=== PATIENT | male | born 1950 | race Caucasian/White ===

== ENCOUNTER 2017-06-11 10:46 | Inpatient (IN) | payer MEDICAID, OTHER ==
[~2017-06-11] VITALS: Ht 180.3 cm; Wt 81.6 kg
[~2017-06-11 10:46] MED LIST: ASPI-621 PO; ATOR20TA9 PO; ATOR40TA PO; ATOR40TA78 PO; CARV3.122 PO; CLOP75TA PO; CLOP75TA52 PO; FLUC200T PO; FURO-92 PO; FURO40TA6 PO; HYDR-3237 PO; LEVO500T47 PO; LISI-170 PO; LISI5TAB7 PO; METF500T27 PO; METF500T4 PO; METO25TA35 PO; METO25TA35 PO/NG; MULT-750 PO; OXYC5TAB3 PO; PARO10TA56 PO; PARO20TA4 PO; POTA10TA5 PO; POTA20TA89 PO; SENN1TAB7 PO; SPIR25TA PO; SPIR25TA3 PO; TAMS-11 PO
[2017-06-11 11:30] LABS: BASOPHILS # (AUTO) 0.02 x10^3/uL (0-0.1); BASOPHILS % (AUTO) 0 % (0-1); EOSINOPHILS # (AUTO) 0.05 x10^3/uL (0-0.4); EOSINOPHILS % (AUTO) 1 % (1-7); LYMPHOCYTES # (AUTO) 1.15 x10^3/uL (1-3.4); LYMPHOCYTES % (AUTO) 18 % (22-44); MD NO; MEAN CORPUSCULAR HEMOGLOBIN 31.3 pg (27.5-34.5); MEAN CORPUSCULAR HGB CONC 34.2 g/dL (33.2-36.2); MEAN CORPUSCULAR VOLUME 91.5 fL (81-97); MONOCYTES # (AUTO) 0.33 x10^3/uL (0.2-0.8); MONOCYTES % (AUTO) 5 % (2-9); NEUTROPHILS # (AUTO) 4.71 x10^3/uL (1.8-6.8); NEUTROPHILS % (AUTO) 75 % (42-75); PLATELET COUNT 162 x10^3/uL (130-400); RED BLOOD COUNT 4.49 x10^6/uL (4.38-5.82); RED CELL DISTRIBUTION WIDTH 12.9 % (9.4-14.8)
[2017-06-11] MEDS ORDERED: SODIUM CHLORIDE 0.9% 1,000ML IVBOLUS ONE (11:30)
[2017-06-11] MEDS ORDERED: SODIUM CHLORIDE FLUSH 10ML SYR IVF ONE (11:30)
[2017-06-11 11:43] LABS: ANION GAP 10 mmol/L (5-15); CALCIUM 8.5 mg/dL (8.5-10.1); CHLORIDE 106 mmol/L (98-107)
[2017-06-11 11:50] LABS: CREATININE 1.08 mg/dL (0.7-1.3)
[2017-06-11 11:54] LABS: TROPONIN I 0.151 ng/mL (0.000-0.045)
[2017-06-11] MEDS ORDERED: ASPIRIN 81 MG TABLET CHEW PO ONE (12:30)
[2017-06-11] MEDS ORDERED: ASPIRIN 81 MG TABLET CHEW ONE (12:43)
[2017-06-11] MEDS ORDERED: GLUCAGON 1 MG IM PRN (14:00)
[2017-06-11] MEDS ORDERED: DOCUSATE 100 MG CAPSULE PO PRN (14:00)
[2017-06-11] MEDS ORDERED: SODIUM CHLORIDE 0.9% 1,000 ML IV SCH ×2 (14:00→14:40)
[2017-06-11] MEDS ORDERED: morphine SULFATE 10 MG/ML, 1ML IVPush PRN (14:00)
[2017-06-11] MEDS ORDERED: LABETALOL 5MG/ML, 20ML IVPush PRN (14:00)
[2017-06-11] MEDS ORDERED: POLYETHYLENE GLYCOL 17 GM PACKET PO PRN (14:00)
[2017-06-11] MEDS ORDERED: ENALAPRILAT 1.25 MG/ML, 2ML IVPush PRN (14:00)
[2017-06-11] MEDS ORDERED: DEXTROSE 50%, 50ML SYRINGE IVPush PRN (14:00)
[2017-06-11] MEDS ORDERED: BISACODYL 10 MG SUPP PR PRN (14:00)
[2017-06-11] MEDS ORDERED: DEXTROSE 4 GM TAB.CHEW PO PRN (14:00)
[2017-06-11] MEDS ORDERED: HYDROcodone/APAP 5/325 TABLET PO PRN (14:00)
[2017-06-11 14:54] LABS: HEMOGLOBIN A1C 12.5 % (4.2-6.3)
[2017-06-11] MEDS: HEPARIN 5,000 UNITS/ML, 1ML SQ SCH ×2 (15:02→22:51)
[2017-06-11] MEDS ORDERED: GADOBUTROL 7.5 MMOL/7.5 ML PFS ONE (16:48)
[2017-06-11 17:26] VITALS: BP 165/84
[2017-06-11 17:27] VITALS: BP 166/82
[2017-06-11 17:28] VITALS: BP 172/95
[2017-06-11] MEDS: CARVEDILOL 3.125 MG TABLET PO SCH (17:36)
[2017-06-11] MEDS: INSULIN LISPRO 100 UNITS/ML, PEN SQ-INSULIN SCH ×2 (17:38→21:52)
[2017-06-11 18:53] VITALS: BP 133/80
[2017-06-11] MEDS: LISINOPRIL 20 MG TABLET PO SCH (21:46)
[2017-06-11] MEDS: ATORVASTATIN 20 MG TABLET PO SCH (21:46)
[2017-06-11] MEDS: SODIUM CHLORIDE FLUSH 10ML SYR IVF SCH (21:47)
[2017-06-11] MEDS: ONDANSETRON 2MG/ML, 2ML IVPush PRN (22:51)
[2017-06-11 23:59] LABS: TROPONIN I 0.166 ng/mL (0.000-0.045)
[2017-06-12 04:26] LABS: BASOPHILS # (AUTO) 0.02 x10^3/uL (0-0.1); BASOPHILS % (AUTO) 0 % (0-1); EOSINOPHILS # (AUTO) 0.13 x10^3/uL (0-0.4); EOSINOPHILS % (AUTO) 2 % (1-7); LYMPHOCYTES # (AUTO) 1.28 x10^3/uL (1-3.4); LYMPHOCYTES % (AUTO) 20 % (22-44); MD NO; MEAN CORPUSCULAR HEMOGLOBIN 31.5 pg (27.5-34.5); MEAN CORPUSCULAR HGB CONC 34.4 g/dL (33.2-36.2); MEAN CORPUSCULAR VOLUME 91.4 fL (81-97); MEAN PLATELET VOLUME 10.2 fL (7.4-10.4); MONOCYTES % (AUTO) 5 % (2-9); NEUTROPHILS # (AUTO) 4.63 x10^3/uL (1.8-6.8); NEUTROPHILS % (AUTO) 73 % (42-75); PLATELET COUNT 163 x10^3/uL (130-400); RED BLOOD COUNT 4.44 x10^6/uL (4.38-5.82); RED CELL DISTRIBUTION WIDTH 12.9 % (9.4-14.8)
[2017-06-12 04:35] VITALS: BP 157/79
[2017-06-12 04:42] LABS: CHLORIDE 109 mmol/L (98-107)
[2017-06-12 04:50] LABS: ALANINE AMINOTRANSFERASE 13 U/L (12-78); ALBUMIN 2.7 g/dL (3.4-5.0); ALKALINE PHOSPHATASE 74 U/L (45-117); ANION GAP 7 mmol/L (5-15); CALCIUM 8.3 mg/dL (8.5-10.1); CREATININE 0.88 mg/dL (0.7-1.3); TOTAL PROTEIN 5.9 g/dL (6.4-8.2)
[2017-06-12] MEDS: HEPARIN 5,000 UNITS/ML, 1ML SQ SCH ×3 (06:29→21:19)
[2017-06-12] MEDS: CARVEDILOL 3.125 MG TABLET PO SCH ×2 (06:29→17:42)
[2017-06-12] MEDS: ONDANSETRON 2MG/ML, 2ML IVPush PRN ×3 (06:29→21:19)
[2017-06-12] MEDS: INSULIN LISPRO 100 UNITS/ML, PEN SQ-INSULIN SCH ×4 (07:00→21:15)
[2017-06-12 07:03] VITALS: BP 165/87
[2017-06-12] MEDS: MULTIVITAMIN 1 TABLET PO SCH (08:53)
[2017-06-12] MEDS: LISINOPRIL 20 MG TABLET PO SCH ×2 (08:53→21:14)
[2017-06-12] MEDS: SODIUM CHLORIDE FLUSH 10ML SYR IVF SCH ×2 (08:53→21:14)
[2017-06-12] MEDS: TAMSULOSIN 0.4 MG CAP.ER.24H PO SCH (08:53)
[2017-06-12] MEDS: PAROXETINE 20 MG TABLET PO SCH (08:53)
[2017-06-12] MEDS: ASPIRIN 81 MG TABLET EC PO SCH (08:53)
[2017-06-12] MEDS: CLOPIDOGREL 75 MG TABLET PO SCH (08:53)
[2017-06-12] MEDS ORDERED: REGADENOSON 0.4 MG/5 ML SYRINGE ONE (09:03)
[2017-06-12 11:01] VITALS: BP_SYST 162; BP_SYST 169; BP_SYST 170; BP_DIAS 85; BP_DIAS 88; BP_DIAS 94
[2017-06-12] MEDS: ACETAMINOPHEN 325 MG TABLET PO PRN (11:31)
[2017-06-12 13:16] VITALS: BP 150/74
[2017-06-12] MEDS ORDERED: LORazepam 2 MG/ML, 1ML IVPush PRN (14:30)
[2017-06-12 20:26] VITALS: BP 147/56
[2017-06-12] MEDS: ATORVASTATIN 20 MG TABLET PO SCH (21:14)
[2017-06-13] VITALS (9 sets, daily range): BP systolic 142–180; BP diastolic 48–98
[2017-06-13] MEDS: ACETAMINOPHEN 325 MG TABLET PO PRN ×2 (06:08→11:45)
[2017-06-13] MEDS: CARVEDILOL 3.125 MG TABLET PO SCH ×2 (06:09→17:14)
[2017-06-13] MEDS: HEPARIN 5,000 UNITS/ML, 1ML SQ SCH ×3 (06:09→22:18)
[2017-06-13 06:15] LABS: BASOPHILS # (AUTO) 0.02 x10^3/uL (0-0.1); BASOPHILS % (AUTO) 0 % (0-1); CHLORIDE 109 mmol/L (98-107); EOSINOPHILS # (AUTO) 0.05 x10^3/uL (0-0.4); EOSINOPHILS % (AUTO) 1 % (1-7); LYMPHOCYTES # (AUTO) 2.06 x10^3/uL (1-3.4); LYMPHOCYTES % (AUTO) 23 % (22-44); MD NO; MEAN CORPUSCULAR HEMOGLOBIN 31.5 pg (27.5-34.5); MEAN CORPUSCULAR HGB CONC 34.5 g/dL (33.2-36.2); MEAN CORPUSCULAR VOLUME 91.3 fL (81-97); MEAN PLATELET VOLUME 10.2 fL (7.4-10.4); MONOCYTES # (AUTO) 0.54 x10^3/uL (0.2-0.8); MONOCYTES % (AUTO) 6 % (2-9); NEUTROPHILS # (AUTO) 6.21 x10^3/uL (1.8-6.8); NEUTROPHILS % (AUTO) 70 % (42-75); PLATELET COUNT 197 x10^3/uL (130-400); RED BLOOD COUNT 4.87 x10^6/uL (4.38-5.82); RED CELL DISTRIBUTION WIDTH 12.7 % (9.4-14.8)
[2017-06-13 06:25] LABS: ALANINE AMINOTRANSFERASE 13 U/L (12-78); ALKALINE PHOSPHATASE 79 U/L (45-117); ANION GAP 11 mmol/L (5-15); BILIRUBIN,TOTAL 0.9 mg/dL (0.2-1.0); CALCIUM 8.8 mg/dL (8.5-10.1); CREATININE 0.98 mg/dL (0.7-1.3); TOTAL PROTEIN 6.4 g/dL (6.4-8.2)
[2017-06-13] MEDS: ONDANSETRON 2MG/ML, 2ML IVPush PRN ×2 (06:45→11:45)
[2017-06-13] MEDS ORDERED: POTASSIUM CHLORIDE 20 MEQ TAB.ER.PRT PO ONE (08:00)
[2017-06-13] MEDS: MULTIVITAMIN 1 TABLET PO SCH (09:31)
[2017-06-13] MEDS: LISINOPRIL 20 MG TABLET PO SCH ×2 (09:31→20:21)
[2017-06-13] MEDS: INSULIN LISPRO 100 UNITS/ML, PEN SQ-INSULIN SCH ×4 (09:31→20:27)
[2017-06-13] MEDS: PAROXETINE 20 MG TABLET PO SCH (09:31)
[2017-06-13] MEDS: TAMSULOSIN 0.4 MG CAP.ER.24H PO SCH (09:31)
[2017-06-13] MEDS: CLOPIDOGREL 75 MG TABLET PO SCH (09:32)
[2017-06-13] MEDS: SODIUM CHLORIDE FLUSH 10ML SYR IVF SCH ×2 (09:32→20:22)
[2017-06-13] MEDS: ASPIRIN 81 MG TABLET EC PO SCH (09:32)
[2017-06-13] MEDS ORDERED: SUMATRIPTAN 6MG/0.5ML SQ PRN (12:00)
[2017-06-13] MEDS: DOCUSATE 100 MG CAPSULE PO SCH ×2 (13:02→20:21)
[2017-06-13] MEDS: AMLODIPINE 5 MG TABLET PO SCH (13:03)
[2017-06-13 13:28] LABS: MICROSCOPIC INDICATED
[2017-06-13 13:36] LABS: CULTURE INDICATED? NO
[2017-06-13] MEDS: ATORVASTATIN 20 MG TABLET PO SCH (20:21)
[2017-06-14 00:44] VITALS: BP 136/73
[2017-06-14] MEDS: ACETAMINOPHEN 325 MG TABLET PO PRN ×3 (06:20→20:20)
[2017-06-14] MEDS: CARVEDILOL 3.125 MG TABLET PO SCH ×2 (06:21→18:03)
[2017-06-14] MEDS: HEPARIN 5,000 UNITS/ML, 1ML SQ SCH ×3 (06:21→20:33)
[2017-06-14] MEDS: INSULIN LISPRO 100 UNITS/ML, PEN SQ-INSULIN SCH ×4 (07:55→20:26)
[2017-06-14 08:05] VITALS: BP 144/77
[2017-06-14 08:06] VITALS: BP_SYST 159; BP_SYST 167; BP_DIAS 102; BP_DIAS 89
[2017-06-14] MEDS: SODIUM CHLORIDE FLUSH 10ML SYR IVF SCH ×2 (09:00→20:17)
[2017-06-14] MEDS ORDERED: INSULIN GLARGINE 100 UNITS/ML, PEN SQ-INSULIN SCH (09:00)
[2017-06-14] MEDS: PAROXETINE 20 MG TABLET PO SCH (09:00)
[2017-06-14] MEDS: INSULIN DETEMIR 100 UNITS/ML, PEN SQ-INSULIN SCH ×2 (09:00→20:26)
[2017-06-14] MEDS ORDERED: PAROXETINE 10 MG TABLET ONE (09:39)
[2017-06-14] MEDS: CLOPIDOGREL 75 MG TABLET PO SCH (09:41)
[2017-06-14] MEDS: LISINOPRIL 20 MG TABLET PO SCH ×2 (09:42→20:18)
[2017-06-14] MEDS: AMLODIPINE 5 MG TABLET PO SCH (09:42)
[2017-06-14] MEDS: ASPIRIN 81 MG TABLET EC PO SCH (09:42)
[2017-06-14] MEDS: MULTIVITAMIN 1 TABLET PO SCH (09:42)
[2017-06-14] MEDS: DOCUSATE 100 MG CAPSULE PO SCH ×2 (09:42→20:17)
[2017-06-14] MEDS: MECLIZINE 12.5 MG TABLET PO SCH ×3 (09:43→20:17)
[2017-06-14] MEDS: TAMSULOSIN 0.4 MG CAP.ER.24H PO SCH (09:43)
[2017-06-14 12:54] VITALS: BP 105/61
[2017-06-14] MEDS ORDERED: AMLO5TAB2 PO (12:58)
[2017-06-14] MEDS ORDERED: MULT1TAB60 PO (12:58)
[2017-06-14] MEDS ORDERED: INSU100I11 SQ-INSULIN (12:58)
[2017-06-14] MEDS ORDERED: TAMS-11 PO (12:58)
[2017-06-14] MEDS ORDERED: INSU100I28 SQ-INSULIN (12:58)
[2017-06-14] MEDS ORDERED: DOCU-131 PO (12:58)
[2017-06-14] MEDS ORDERED: LISI-170 PO (12:58)
[2017-06-14] MEDS ORDERED: CLOP75TA PO (12:58)
[2017-06-14] MEDS ORDERED: PARO20TA4 PO (12:58)
[2017-06-14] MEDS ORDERED: ASPI-621 PO (12:58)
[2017-06-14] MEDS ORDERED: ONDA4TAB10 PO (12:58)
[2017-06-14] MEDS ORDERED: ATOR20TA9 PO (12:58)
[2017-06-14] MEDS ORDERED: MECL12.52 PO (12:58)
[2017-06-14] MEDS ORDERED: CARV3.1212 PO (12:58)
[2017-06-14 19:55] VITALS: BP 150/78
[2017-06-14 19:56] VITALS: BP_SYST 133; BP_SYST 144; BP_DIAS 77; BP_DIAS 86
[2017-06-14] MEDS: ATORVASTATIN 20 MG TABLET PO SCH (20:17)
[2017-06-15 02:10] VITALS: BP 151/72
[2017-06-15] MEDS: ONDANSETRON 2MG/ML, 2ML IVPush PRN (04:48)
[2017-06-15] MEDS: CARVEDILOL 3.125 MG TABLET PO SCH ×2 (05:46→18:34)
[2017-06-15] MEDS: HEPARIN 5,000 UNITS/ML, 1ML SQ SCH ×3 (05:46→23:05)
[2017-06-15 07:46] VITALS: BP 154/86
[2017-06-15 07:47] VITALS: BP 139/82
[2017-06-15 07:49] VITALS: BP 149/81
[2017-06-15] MEDS: INSULIN LISPRO 100 UNITS/ML, PEN SQ-INSULIN SCH ×4 (08:01→20:52)
[2017-06-15] MEDS: PAROXETINE 20 MG TABLET PO SCH (09:00)
[2017-06-15] MEDS: SODIUM CHLORIDE FLUSH 10ML SYR IVF SCH ×2 (09:00→20:51)
[2017-06-15] MEDS ORDERED: PAROXETINE 10 MG TABLET ONE (09:53)
[2017-06-15] MEDS: MECLIZINE 12.5 MG TABLET PO SCH ×3 (09:57→20:52)
[2017-06-15] MEDS: CLOPIDOGREL 75 MG TABLET PO SCH (09:58)
[2017-06-15] MEDS: MULTIVITAMIN 1 TABLET PO SCH (09:58)
[2017-06-15] MEDS: TAMSULOSIN 0.4 MG CAP.ER.24H PO SCH (09:58)
[2017-06-15] MEDS: ASPIRIN 81 MG TABLET EC PO SCH (09:58)
[2017-06-15] MEDS: LISINOPRIL 20 MG TABLET PO SCH ×2 (09:58→20:52)
[2017-06-15] MEDS: AMLODIPINE 5 MG TABLET PO SCH (09:58)
[2017-06-15] MEDS: DOCUSATE 100 MG CAPSULE PO SCH ×2 (09:58→20:52)
[2017-06-15] MEDS: INSULIN DETEMIR 100 UNITS/ML, PEN SQ-INSULIN SCH ×2 (09:59→20:53)
[2017-06-15 13:09] VITALS: BP 138/80
[2017-06-15 18:51] VITALS: BP 116/65
[2017-06-15] MEDS: ATORVASTATIN 20 MG TABLET PO SCH (20:52)
[2017-06-16 02:29] VITALS: BP 132/64
[2017-06-16] MEDS: CARVEDILOL 3.125 MG TABLET PO SCH ×2 (05:07→17:46)
[2017-06-16 07:12] VITALS: BP 149/78
[2017-06-16] MEDS ORDERED: PAROXETINE 10 MG TABLET ONE (08:30)
[2017-06-16] MEDS: HEPARIN 5,000 UNITS/ML, 1ML SQ SCH ×3 (08:34→23:22)
[2017-06-16] MEDS: PAROXETINE 20 MG TABLET PO SCH (08:35)
[2017-06-16] MEDS: MECLIZINE 12.5 MG TABLET PO SCH ×3 (08:35→21:25)
[2017-06-16] MEDS: AMLODIPINE 5 MG TABLET PO SCH (08:36)
[2017-06-16] MEDS: TAMSULOSIN 0.4 MG CAP.ER.24H PO SCH (08:36)
[2017-06-16] MEDS: DOCUSATE 100 MG CAPSULE PO SCH ×2 (08:36→21:25)
[2017-06-16] MEDS: CLOPIDOGREL 75 MG TABLET PO SCH (08:36)
[2017-06-16] MEDS: MULTIVITAMIN 1 TABLET PO SCH (08:36)
[2017-06-16] MEDS: LISINOPRIL 20 MG TABLET PO SCH ×2 (08:36→21:25)
[2017-06-16] MEDS: ASPIRIN 81 MG TABLET EC PO SCH (08:36)
[2017-06-16] MEDS: INSULIN LISPRO 100 UNITS/ML, PEN SQ-INSULIN SCH ×4 (08:37→21:37)
[2017-06-16] MEDS: INSULIN DETEMIR 100 UNITS/ML, PEN SQ-INSULIN SCH ×2 (08:37→21:38)
[2017-06-16] MEDS: SODIUM CHLORIDE FLUSH 10ML SYR IVF SCH ×2 (08:38→21:26)
[2017-06-16 12:35] VITALS: BP 158/88
[2017-06-16 15:01] VITALS: BP 138/80
[2017-06-16 16:28] VITALS: BP 157/83
[2017-06-16 20:29] VITALS: BP 164/77
[2017-06-16] MEDS: ATORVASTATIN 20 MG TABLET PO SCH (21:25)
[2017-06-17] VITALS (8 sets, daily range): BP systolic 108–155; BP diastolic 52–88
[2017-06-17] MEDS: INSULIN LISPRO 100 UNITS/ML, PEN SQ-INSULIN SCH ×4 (06:09→21:15)
[2017-06-17] MEDS: CARVEDILOL 3.125 MG TABLET PO SCH ×2 (06:12→17:20)
[2017-06-17 08:16] LABS: BASOPHILS # (AUTO) 0.02 x10^3/uL (0-0.1); BASOPHILS % (AUTO) 0 % (0-1); EOSINOPHILS # (AUTO) 0.07 x10^3/uL (0-0.4); EOSINOPHILS % (AUTO) 1 % (1-7); LYMPHOCYTES # (AUTO) 1.44 x10^3/uL (1-3.4); LYMPHOCYTES % (AUTO) 27 % (22-44); MD NO; MEAN CORPUSCULAR HEMOGLOBIN 31.3 pg (27.5-34.5); MEAN CORPUSCULAR HGB CONC 34.3 g/dL (33.2-36.2); MEAN CORPUSCULAR VOLUME 91.3 fL (81-97); MEAN PLATELET VOLUME 9.9 fL (7.4-10.4); MONOCYTES # (AUTO) 0.71 x10^3/uL (0.2-0.8); MONOCYTES % (AUTO) 13 % (2-9); NEUTROPHILS # (AUTO) 3.04 x10^3/uL (1.8-6.8); NEUTROPHILS % (AUTO) 58 % (42-75); PLATELET COUNT 141 x10^3/uL (130-400); RED BLOOD COUNT 4.99 x10^6/uL (4.38-5.82); RED CELL DISTRIBUTION WIDTH 12.7 % (9.4-14.8)
[2017-06-17 08:20] LABS: ANION GAP 8 mmol/L (5-15); CALCIUM 8.4 mg/dL (8.5-10.1); CHLORIDE 103 mmol/L (98-107); CREATININE 0.77 mg/dL (0.7-1.3)
[2017-06-17] MEDS: MECLIZINE 12.5 MG TABLET PO SCH (09:34)
[2017-06-17] MEDS: PAROXETINE 20 MG TABLET PO SCH (09:34)
[2017-06-17] MEDS: CLOPIDOGREL 75 MG TABLET PO SCH (09:35)
[2017-06-17] MEDS: LISINOPRIL 20 MG TABLET PO SCH (09:35)
[2017-06-17] MEDS: AMLODIPINE 5 MG TABLET PO SCH (09:35)
[2017-06-17] MEDS: INSULIN DETEMIR 100 UNITS/ML, PEN SQ-INSULIN SCH ×2 (09:35→21:15)
[2017-06-17] MEDS: TAMSULOSIN 0.4 MG CAP.ER.24H PO SCH (09:35)
[2017-06-17] MEDS: ASPIRIN 81 MG TABLET EC PO SCH (09:35)
[2017-06-17] MEDS: MULTIVITAMIN 1 TABLET PO SCH (09:35)
[2017-06-17] MEDS: DOCUSATE 100 MG CAPSULE PO SCH ×2 (09:35→20:23)
[2017-06-17] MEDS: SODIUM CHLORIDE FLUSH 10ML SYR IVF SCH ×2 (09:36→21:00)
[2017-06-17] MEDS: HEPARIN 5,000 UNITS/ML, 1ML SQ SCH ×2 (09:36→17:20)
[2017-06-17] MEDS: SODIUM CHLORIDE 0.9% 1,000 ML IV SCH ×2 (10:51→20:00)
[2017-06-17] MEDS: ATORVASTATIN 20 MG TABLET PO SCH (20:23)
[2017-06-18] MEDS: HEPARIN 5,000 UNITS/ML, 1ML SQ SCH ×3 (01:27→17:00)
[2017-06-18 01:38] VITALS: BP 166/84
[2017-06-18] MEDS: HYDROcodone/APAP 5/325 TABLET PO PRN ×2 (01:42→21:17)
[2017-06-18] MEDS: SODIUM CHLORIDE 0.9% 1,000 ML IV SCH ×3 (04:00→20:00)
[2017-06-18 05:05] LABS: ALBUMIN 2.4 g/dL (3.4-5.0); ANION GAP 8 mmol/L (5-15); CALCIUM 7.8 mg/dL (8.5-10.1); CHLORIDE 106 mmol/L (98-107)
[2017-06-18 05:07] LABS: CREATININE 0.72 mg/dL (0.7-1.3)
[2017-06-18] MEDS: CARVEDILOL 3.125 MG TABLET PO SCH ×2 (06:20→18:36)
[2017-06-18] MEDS: INSULIN LISPRO 100 UNITS/ML, PEN SQ-INSULIN SCH ×4 (07:00→21:24)
[2017-06-18 07:49] VITALS: BP 156/78
[2017-06-18] MEDS ORDERED: LISINOPRIL 5 MG TABLET PO SCH (09:00)
[2017-06-18] MEDS: SODIUM CHLORIDE FLUSH 10ML SYR IVF SCH ×2 (09:00→21:00)
[2017-06-18] MEDS: TAMSULOSIN 0.4 MG CAP.ER.24H PO SCH (09:44)
[2017-06-18] MEDS: ASPIRIN 81 MG TABLET EC PO SCH (09:44)
[2017-06-18] MEDS: MULTIVITAMIN 1 TABLET PO SCH (09:44)
[2017-06-18] MEDS: CLOPIDOGREL 75 MG TABLET PO SCH (09:44)
[2017-06-18] MEDS: DOCUSATE 100 MG CAPSULE PO SCH ×2 (09:45→21:16)
[2017-06-18] MEDS: PAROXETINE 20 MG TABLET PO SCH (09:45)
[2017-06-18] MEDS: INSULIN DETEMIR 100 UNITS/ML, PEN SQ-INSULIN SCH ×2 (09:45→21:26)
[2017-06-18 13:11] VITALS: BP 145/73
[2017-06-18 14:42] VITALS: BP_SYST 145; BP_SYST 151; BP_DIAS 73; BP_DIAS 82; BP_DIAS 84
[2017-06-18 15:15] VITALS: BP_SYST 157; BP_SYST 169; BP_DIAS 81; BP_DIAS 82
[2017-06-18 19:45] VITALS: BP 153/82
[2017-06-18] MEDS: ATORVASTATIN 20 MG TABLET PO SCH (21:16)
[2017-06-19] MEDS: HEPARIN 5,000 UNITS/ML, 1ML SQ SCH ×2 (01:20→10:15)
[2017-06-19 02:23] VITALS: BP 149/79
[2017-06-19] MEDS: SODIUM CHLORIDE 0.9% 1,000 ML IV SCH (04:00)
[2017-06-19] MEDS: CARVEDILOL 3.125 MG TABLET PO SCH (06:07)
[2017-06-19 06:14] VITALS: BP_SYST 161; BP_SYST 166; BP_DIAS 81; BP_DIAS 87
[2017-06-19 06:15] VITALS: BP 162/93
[2017-06-19] MEDS: HYDROcodone/APAP 5/325 TABLET PO PRN (06:36)
[2017-06-19] MEDS: INSULIN LISPRO 100 UNITS/ML, PEN SQ-INSULIN SCH ×2 (07:00→11:00)
[2017-06-19 07:09] VITALS: BP 153/85
[2017-06-19] MEDS: SODIUM CHLORIDE FLUSH 10ML SYR IVF SCH (09:00)
[2017-06-19] MEDS: CLOPIDOGREL 75 MG TABLET PO SCH (10:15)
[2017-06-19] MEDS: INSULIN DETEMIR 100 UNITS/ML, PEN SQ-INSULIN SCH (10:15)
[2017-06-19] MEDS: MULTIVITAMIN 1 TABLET PO SCH (10:15)
[2017-06-19] MEDS: DOCUSATE 100 MG CAPSULE PO SCH (10:15)
[2017-06-19] MEDS: TAMSULOSIN 0.4 MG CAP.ER.24H PO SCH (10:15)
[2017-06-19] MEDS: PAROXETINE 20 MG TABLET PO SCH (10:15)
[2017-06-19] MEDS: ASPIRIN 81 MG TABLET EC PO SCH (10:15)
== END 2017-06-19 11:46 | disposition left against medical advice (07) | DRG 149 ==
LOC: ED 11:35 → EDIP 12:59 → 5SO 14:29 → 4NOR 06-16 16:26
PROVIDERS: ADMIT Hospitalist; ATTEND Hospitalist
DX: R42 Dizziness and giddiness (principal); I21.9 Acute myocardial infarction, unspecified; E44.0 Moderate protein-calorie malnutrition; I13.0 Hypertensive heart and chronic kidney disease with heart failure and stage 1 through stage 4 chronic kidney disease, or unspecified chronic kidney disease; I50.22 Chronic systolic (congestive) heart failure; D63.8 Anemia in other chronic diseases classified elsewhere; N32.0 Bladder-neck obstruction; E11.22 Type 2 diabetes mellitus with diabetic chronic kidney disease; E11.65 Type 2 diabetes mellitus with hyperglycemia; Z68.25 Body mass index [BMI] 25.0-25.9, adult; E78.00 Pure hypercholesterolemia, unspecified; E78.5 Hyperlipidemia, unspecified; F32.9 Major depressive disorder, single episode, unspecified; F41.9 Anxiety disorder, unspecified; G43.009 Migraine without aura, not intractable, without status migrainosus; H93.19 Tinnitus, unspecified ear; I25.10 Atherosclerotic heart disease of native coronary artery without angina pectoris; I25.5 Ischemic cardiomyopathy; I44.0 Atrioventricular block, first degree; I95.1 Orthostatic hypotension; J44.9 Chronic obstructive pulmonary disease, unspecified; N18.2 Chronic kidney disease, stage 2 (mild); Z53.21 Procedure and treatment not carried out due to patient leaving prior to being seen by health care provider; N40.0 Benign prostatic hyperplasia without lower urinary tract symptoms; Z95.1 Presence of aortocoronary bypass graft; Z59.0 Homelessness; Z66 Do not resuscitate; Z91.19 Patient's noncompliance with other medical treatment and regimen
CPT/HCPCS: 36415; 70548; 70553; 71045; 78452; 80048; 80053; 81001; 82040; 82962; 83036; 83735; 84100; 84443; 84484; 85025; 93005; 93017; 93306; 93880; 99285; A9585; J1644; J2405; J2785; A9502; C9898; J1815; J2060; J3030; J7030

== ENCOUNTER 2017-06-19 11:51 | Emergency (ER) | payer SELFPAY ==
[~2017-06-19] VITALS: Ht 180.3 cm; Wt 83.0 kg
[~2017-06-19 11:51] MED LIST changes: +AMLO5TAB2 PO; +CARV3.1212 PO; +DOCU-131 PO; +INSU100I11 SQ-INSULIN; +INSU100I28 SQ-INSULIN; +MECL12.52 PO; +MULT1TAB60 PO; +ONDA4TAB10 PO
[2017-06-19 16:33] VITALS: BP 154/95
== END 2017-06-19 16:49 | disposition home or self-care (01) ==
LOC: ED 13:20
DX: R42 Dizziness and giddiness (principal); E78.00 Pure hypercholesterolemia, unspecified; J44.9 Chronic obstructive pulmonary disease, unspecified; E11.9 Type 2 diabetes mellitus without complications; I50.9 Heart failure, unspecified; I25.2 Old myocardial infarction; I11.0 Hypertensive heart disease with heart failure; Z95.1 Presence of aortocoronary bypass graft
CPT/HCPCS: 82962; 93005; 99283

== ENCOUNTER 2017-09-18 09:16 | Emergency (ER) | payer MEDICAID, MEDICARE, OTHER ==
[~2017-09-18] VITALS: Ht 177.8 cm; Wt 82.0 kg
[2017-09-18 09:17] VITALS: BP 130/76
== END 2017-09-18 10:26 | disposition home or self-care (01) ==
LOC: ED 10:20
DX: B86 Scabies (principal); E11.9 Type 2 diabetes mellitus without complications; J44.9 Chronic obstructive pulmonary disease, unspecified; I50.9 Heart failure, unspecified; I11.0 Hypertensive heart disease with heart failure; Z87.891 Personal history of nicotine dependence
CPT/HCPCS: 99283

== ENCOUNTER 2018-04-25 08:20 | Inpatient (IN) | payer MEDICARE, MEDICAID ==
[~2018-04-25] VITALS: Ht 180.3 cm; Wt 85.0 kg
[~2018-04-25 08:20] MED LIST changes: +AMLO-150 PO; -AMLO5TAB2 PO; -ASPI-621 PO; +ASPI81TA45 PO; +ATOR20TA37 PO; -ATOR20TA9 PO; +METF500T17 PO; -METF500T4 PO; -SENN1TAB7 PO; +SENN1TAB8 PO; -SPIR25TA3 PO; +SPIR25TA5 PO
[2018-04-25 09:02] LABS: BASOPHILS # (AUTO) 0.02 x10^3/uL (0-0.1); BASOPHILS % (AUTO) 0 % (0-1); EOSINOPHILS # (AUTO) 0.08 x10^3/uL (0-0.4); EOSINOPHILS % (AUTO) 1 % (1-7); LYMPHOCYTES # (AUTO) 1.11 x10^3/uL (1-3.4); LYMPHOCYTES % (AUTO) 12 % (22-44); MD NO; MEAN CORPUSCULAR HEMOGLOBIN 31.7 pg (27.5-34.5); MEAN CORPUSCULAR HGB CONC 34.8 g/dL (33.2-36.2); MEAN CORPUSCULAR VOLUME 91.2 fL (81-97); MEAN PLATELET VOLUME 10.4 fL (7.4-10.4); MONOCYTES # (AUTO) 0.55 x10^3/uL (0.2-0.8); MONOCYTES % (AUTO) 6 % (2-9); NEUTROPHILS # (AUTO) 7.85 x10^3/uL (1.8-6.8); NEUTROPHILS % (AUTO) 82 % (42-75); PLATELET COUNT 160 x10^3/uL (130-400); RED BLOOD COUNT 4.51 x10^6/uL (4.38-5.82); RED CELL DISTRIBUTION WIDTH 12.8 % (9.4-14.8)
[2018-04-25 09:12] LABS: ALANINE AMINOTRANSFERASE 18 U/L (12-78); ALBUMIN 2.9 g/dL (3.4-5.0); ANION GAP 12 mmol/L (5-15); CALCIUM 8.6 mg/dL (8.5-10.1); CHLORIDE 107 mmol/L (98-107); CREATININE 1.33 mg/dL (0.7-1.3)
[2018-04-25 09:16] LABS: ALKALINE PHOSPHATASE 80 U/L (45-117); BILIRUBIN,TOTAL 0.9 mg/dL (0.2-1.0); TOTAL PROTEIN 6.3 g/dL (6.4-8.2)
[2018-04-25 09:18] LABS: RAPID INFLUENZA A Negative (Negative); RAPID INFLUENZA B Negative (Negative)
[2018-04-25] MEDS ORDERED: ASPIRIN 81 MG TABLET CHEW ONE (09:27)
[2018-04-25] MEDS ORDERED: ASPIRIN 81 MG TABLET CHEW PO ONE (10:00)
[2018-04-25] MEDS ORDERED: PERMETHRIN CRM 5%, 60GM ONE (10:47)
[2018-04-25] MEDS ORDERED: PIPERONYL BUTOXIDE/PYRETHRINS SHAMPOO TP SCH (11:00)
[2018-04-25] MEDS ORDERED: POTASSIUM CHLORIDE 20 MEQ TAB.ER.PRT PO SCH (11:30)
[2018-04-25] MEDS ORDERED: morphine SULFATE 10 MG/ML, 1ML IVPush PRN (12:00)
[2018-04-25] MEDS ORDERED: ACETAMINOPHEN 325 MG TABLET PO PRN (12:00)
[2018-04-25] MEDS ORDERED: ONDANSETRON 2MG/ML, 2ML IVPush PRN (12:00)
[2018-04-25] MEDS ORDERED: hydrALAzine 20 MG/ML, 1ML IVPush PRN (12:00)
[2018-04-25] MEDS ORDERED: TEMAZEPAM 15 MG CAPSULE PO PRN (12:00)
[2018-04-25 12:52] LABS: BASOPHILS # (AUTO) 0.02 x10^3/uL (0-0.1); BASOPHILS % (AUTO) 0 % (0-1); EOSINOPHILS # (AUTO) 0.12 x10^3/uL (0-0.4); EOSINOPHILS % (AUTO) 1 % (1-7); LYMPHOCYTES # (AUTO) 1.83 x10^3/uL (1-3.4); LYMPHOCYTES % (AUTO) 21 % (22-44); MD NO; MEAN CORPUSCULAR HEMOGLOBIN 31.7 pg (27.5-34.5); MEAN CORPUSCULAR HGB CONC 34.8 g/dL (33.2-36.2); MEAN PLATELET VOLUME 10.7 fL (7.4-10.4); MONOCYTES # (AUTO) 0.59 x10^3/uL (0.2-0.8); MONOCYTES % (AUTO) 7 % (2-9); NEUTROPHILS # (AUTO) 6.31 x10^3/uL (1.8-6.8); NEUTROPHILS % (AUTO) 71 % (42-75); PLATELET COUNT 157 x10^3/uL (130-400); RED BLOOD COUNT 4.33 x10^6/uL (4.38-5.82); RED CELL DISTRIBUTION WIDTH 13.2 % (9.4-14.8)
[2018-04-25 13:16] VITALS: BP 149/76
[2018-04-25 13:28] VITALS: BP 149/76
[2018-04-25] MEDS: ISOSORBIDE MONONITRATE ER 30 MG TABLET PO SCH (14:05)
[2018-04-25] MEDS: SPIRONOLACTONE 25 MG TABLET PO SCH (14:06)
[2018-04-25] MEDS: HEPARIN 5,000 UNITS/ML, 1ML SQ SCH ×2 (14:06→20:32)
[2018-04-25] MEDS ORDERED: CEFTRIAXONE PMX 1GM/50ML 50 ML IV SCH (14:30)
[2018-04-25] MEDS: INSULIN LISPRO 100 UNITS/ML, PEN SQ-INSULIN SCH ×2 (16:00→20:33)
[2018-04-25 16:27] LABS: TROPONIN I 0.261 ng/mL (0.000-0.045)
[2018-04-25] MEDS ORDERED: ALBUTEROL/IPRATROPIUM 2.5MG/0.5MG, 3 ML NPPB PRN (16:30)
[2018-04-25] MEDS: methylPREDNISolone SOD SUCC 125 MG/2 ML IVPush SCH ×2 (16:48→20:32)
[2018-04-25] MEDS ORDERED: FUROSEMIDE 20 MG/2 ML IV SCH (17:00)
[2018-04-25] MEDS: METOPROLOL TARTRATE 50 MG TABLET PO SCH (17:14)
[2018-04-25 20:07] VITALS: BP 128/63
[2018-04-25] MEDS: ATORVASTATIN 40 MG TABLET PO SCH (20:34)
[2018-04-25] MEDS: DOXYCYCLINE 100MG TABLET PO SCH (20:34)
[2018-04-25] MEDS ORDERED: INSULIN GLARGINE 100 UNITS/ML, PEN SQ-INSULIN SCH (21:00)
[2018-04-25 21:16] LABS: TROPONIN I 0.267 ng/mL (0.000-0.045)
[2018-04-26 00:06] VITALS: BP 124/65
[2018-04-26] MEDS: methylPREDNISolone SOD SUCC 125 MG/2 ML IVPush SCH (02:34)
[2018-04-26] MEDS: HEPARIN 5,000 UNITS/ML, 1ML SQ SCH ×3 (04:03→20:55)
[2018-04-26 05:13] LABS: ALBUMIN 2.5 g/dL (3.4-5.0); ANION GAP 10 mmol/L (5-15); CALCIUM 8.3 mg/dL (8.5-10.1); CHLORIDE 107 mmol/L (98-107)
[2018-04-26 05:18] LABS: ALANINE AMINOTRANSFERASE 16 U/L (12-78); ALKALINE PHOSPHATASE 74 U/L (45-117); BILIRUBIN,TOTAL 0.6 mg/dL (0.2-1.0); CREATININE 1.39 mg/dL (0.7-1.3); TOTAL PROTEIN 6.1 g/dL (6.4-8.2)
[2018-04-26 05:40] VITALS: BP 145/77
[2018-04-26] MEDS: METOPROLOL TARTRATE 50 MG TABLET PO SCH ×2 (05:41→17:21)
[2018-04-26] MEDS: ASPIRIN 81 MG TABLET EC PO SCH (05:41)
[2018-04-26] MEDS: INSULIN LISPRO 100 UNITS/ML, PEN SQ-INSULIN SCH ×6 (08:33→22:31)
[2018-04-26] MEDS: DOXYCYCLINE 100MG TABLET PO SCH ×2 (08:34→20:55)
[2018-04-26] MEDS: ISOSORBIDE MONONITRATE ER 30 MG TABLET PO SCH (08:34)
[2018-04-26] MEDS: FUROSEMIDE 20 MG TABLET PO SCH (08:34)
[2018-04-26] MEDS: SPIRONOLACTONE 25 MG TABLET PO SCH (08:34)
[2018-04-26 09:41] VITALS: BP 100/65
[2018-04-26 12:55] VITALS: BP 110/63
[2018-04-26 18:48] VITALS: BP 99/63
[2018-04-26] MEDS: ATORVASTATIN 40 MG TABLET PO SCH (20:55)
[2018-04-26 20:57] VITALS: BP 133/69
[2018-04-26] MEDS ORDERED: INSULIN GLARGINE 100 UNITS/ML, PEN SQ-INSULIN SCH (21:00)
[2018-04-27 01:53] VITALS: BP 150/85
[2018-04-27] MEDS: ASPIRIN 81 MG TABLET EC PO SCH (05:25)
[2018-04-27] MEDS: HEPARIN 5,000 UNITS/ML, 1ML SQ SCH (05:26)
[2018-04-27] MEDS: METOPROLOL TARTRATE 50 MG TABLET PO SCH (05:27)
[2018-04-27 06:45] VITALS: BP 148/80
[2018-04-27 08:09] LABS: ANION GAP 7 mmol/L (5-15); CALCIUM 8.7 mg/dL (8.5-10.1); CHLORIDE 106 mmol/L (98-107); CREATININE 1.35 mg/dL (0.7-1.3)
[2018-04-27] MEDS: FUROSEMIDE 20 MG TABLET PO SCH (08:43)
[2018-04-27] MEDS: DOXYCYCLINE 100MG TABLET PO SCH (08:44)
[2018-04-27] MEDS: ISOSORBIDE MONONITRATE ER 30 MG TABLET PO SCH (08:44)
[2018-04-27] MEDS: INSULIN LISPRO 100 UNITS/ML, PEN SQ-INSULIN SCH ×4 (08:45→08:48)
[2018-04-27] MEDS: SPIRONOLACTONE 25 MG TABLET PO SCH (08:46)
== END 2018-04-27 09:31 | disposition left against medical advice (07) | DRG 291 ==
LOC: ED 09:29 → EDIP 10:05 → 5SO 13:06
PROVIDERS: ADMIT Hospitalist; ATTEND Hospitalist
DX: I13.0 Hypertensive heart and chronic kidney disease with heart failure and stage 1 through stage 4 chronic kidney disease, or unspecified chronic kidney disease (principal); I50.23 Acute on chronic systolic (congestive) heart failure; J44.1 Chronic obstructive pulmonary disease with (acute) exacerbation; N17.9 Acute kidney failure, unspecified; E11.22 Type 2 diabetes mellitus with diabetic chronic kidney disease; I71.2 Thoracic aortic aneurysm, without rupture; B85.0 Pediculosis due to Pediculus humanus capitis; I25.10 Atherosclerotic heart disease of native coronary artery without angina pectoris; N18.9 Chronic kidney disease, unspecified; Z59.0 Homelessness; N40.0 Benign prostatic hyperplasia without lower urinary tract symptoms; I25.2 Old myocardial infarction; E78.00 Pure hypercholesterolemia, unspecified; E11.65 Type 2 diabetes mellitus with hyperglycemia; B86 Scabies; Z95.1 Presence of aortocoronary bypass graft; Z82.49 Family history of ischemic heart disease and other diseases of the circulatory system; Z91.14 Patient's other noncompliance with medication regimen; Z91.19 Patient's noncompliance with other medical treatment and regimen
CPT/HCPCS: 36415; 71045; 76770; 80048; 80053; 82570; 82962; 83036; 83735; 83880; 84100; 84145; 84156; 84443; 84484; 85025; 85379; 87400; 93005; 99285; G0378; J0696; J1644; J1815; J1940; J2930; J7512

== ENCOUNTER 2018-08-24 13:29 | Emergency (ER) | payer MEDICARE, MEDICAID ==
[~2018-08-24] VITALS: Ht 180.3 cm; Wt 82.0 kg
[~2018-08-24 13:29] MED LIST changes: +SENN-177 PO; -SENN1TAB8 PO
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
[2018-08-24] MEDS ORDERED: SODIUM CHLORIDE FLUSH 10ML SYR IVF ONE (14:00)
[2018-08-24 14:22] LABS: BASOPHILS % (AUTO) 0 % (0-1); EOSINOPHILS # (AUTO) 0.01 x10^3/uL (0-0.4); EOSINOPHILS % (AUTO) 0 % (1-7); LYMPHOCYTES # (AUTO) 0.35 x10^3/uL (1-3.4); LYMPHOCYTES % (AUTO) 4 % (22-44); MD NO; MEAN CORPUSCULAR HEMOGLOBIN 30.4 pg (27.5-34.5); MEAN CORPUSCULAR HGB CONC 33.9 g/dL (33.2-36.2); MEAN CORPUSCULAR VOLUME 89.6 fL (81-97); MEAN PLATELET VOLUME 9.9 fL (7.4-10.4); MONOCYTES # (AUTO) 0.16 x10^3/uL (0.2-0.8); MONOCYTES % (AUTO) 2 % (2-9); NEUTROPHILS # (AUTO) 7.44 x10^3/uL (1.8-6.8); NEUTROPHILS % (AUTO) 94 % (42-75); PLATELET COUNT 157 x10^3/uL (130-400); RED BLOOD COUNT 4.31 x10^6/uL (4.38-5.82); RED CELL DISTRIBUTION WIDTH 13.1 % (9.4-14.8)
[2018-08-24 14:34] LABS: ALANINE AMINOTRANSFERASE 16 U/L (12-78); ALBUMIN 2.7 g/dL (3.4-5.0); ANION GAP 6 mmol/L (5-15); CALCIUM 8.2 mg/dL (8.5-10.1); CHLORIDE 115 mmol/L (98-107)
[2018-08-24 14:37] LABS: ALKALINE PHOSPHATASE 83 U/L (45-117); CREATININE 1.06 mg/dL (0.7-1.3); TOTAL PROTEIN 5.8 g/dL (6.4-8.2)
--- NOTE | 2018-08-24 14:41 | NUR ---
CHART UP FOR MD RECHECK. PT AWARE.
[2018-08-24 15:19] VITALS: BP 146/69
== END 2018-08-24 15:22 | disposition home or self-care (01) ==
LOC: ED 14:10
DX: B34.9 Viral infection, unspecified (principal); I25.2 Old myocardial infarction; E78.00 Pure hypercholesterolemia, unspecified; J44.9 Chronic obstructive pulmonary disease, unspecified; I50.9 Heart failure, unspecified; E11.9 Type 2 diabetes mellitus without complications
CPT/HCPCS: 36415; 71046; 80053; 85025; 93005; 99284

== ENCOUNTER 2019-03-27 00:12 | Emergency (ER) | payer MEDICAID, MEDICARE ==
[~2019-03-27] VITALS: Ht 177.8 cm; Wt 80.0 kg
[2019-03-27 00:59] LABS: BASOPHILS # (AUTO) 0.02 x10^3/uL (0-0.1); BASOPHILS % (AUTO) 0 % (0-1); EOSINOPHILS # (AUTO) 0.23 x10^3/uL (0-0.4); EOSINOPHILS % (AUTO) 2 % (1-7); LYMPHOCYTES # (AUTO) 1.25 x10^3/uL (1-3.4); LYMPHOCYTES % (AUTO) 13 % (22-44); MD NO; MEAN CORPUSCULAR HEMOGLOBIN 31.3 pg (27.5-34.5); MEAN CORPUSCULAR HGB CONC 33.3 g/dL (33.2-36.2); MEAN CORPUSCULAR VOLUME 93.8 fL (81-97); MEAN PLATELET VOLUME 9.7 fL (7.4-10.4); MONOCYTES # (AUTO) 0.52 x10^3/uL (0.2-0.8); MONOCYTES % (AUTO) 5 % (2-9); NEUTROPHILS # (AUTO) 7.67 x10^3/uL (1.8-6.8); NEUTROPHILS % (AUTO) 79 % (42-75); PLATELET COUNT 179 x10^3/uL (130-400); RED BLOOD COUNT 4.17 x10^6/uL (4.38-5.82); RED CELL DISTRIBUTION WIDTH 13.9 % (9.4-14.8)
--- NOTE | 2019-03-27 01:04 | NUR ---
INST ON THE NEED FOR A UA.
[2019-03-27 01:08] LABS: ALANINE AMINOTRANSFERASE 15 U/L (12-78); ALBUMIN 2.7 g/dL (3.4-5.0); ANION GAP 3 mmol/L (5-15); CALCIUM 8.6 mg/dL (8.5-10.1); CHLORIDE 113 mmol/L (98-107); CREATININE 1.18 mg/dL (0.7-1.3)
[2019-03-27 01:13] LABS: ALKALINE PHOSPHATASE 84 U/L (45-117); BILIRUBIN,TOTAL 0.6 mg/dL (0.2-1.0); TOTAL PROTEIN 6.3 g/dL (6.4-8.2)
[2019-03-27 01:27] LABS: TROPONIN I 0.418 ng/mL (0.000-0.045)
[2019-03-27] MEDS ORDERED: MORPHINE SULFATE 4 MG/ML, 1ML IVPush PRN (01:30)
[2019-03-27] MEDS ORDERED: NITROGLYCERIN OINT 2%, 1GM TP ONE ×2 (01:30→01:32)
[2019-03-27] MEDS ORDERED: MORPHINE SULFATE 4 MG/ML, 1ML ONE (01:32)
[2019-03-27 01:36] VITALS: BP 138/72
--- NOTE | 2019-03-27 01:36 | NUR ---
PT INFORMED OF ELEVATED TROP AND EXPLAINED THE RISKS OF LEAVING. PA AWARE & PT EXPRESSED WANTS TO GO HOME. "I DONT CARE.. I WANT TO GO HOME & GET SOME REST". PT AWARE OF PLAN TO SIGN AMA.
--- NOTE | 2019-03-27 01:45 | NUR ---
PIV DC. BLEEDING CONTROLLED. SIGNED AMA PAPERWORK. AGAIN DISCUSSED RISKS OF LEAVING.. "I DONT GIVE A DAMN.. IM NOT AFRAID OF DYING.. I DONT WANT TO STAY HERE, I DONT EVEN LIKE PEOPLE."
== END 2019-03-27 01:48 | disposition left against medical advice (07) ==
LOC: ED 01:29
DX: I24.9 Acute ischemic heart disease, unspecified (principal); I21.4 Non-ST elevation (NSTEMI) myocardial infarction; E78.00 Pure hypercholesterolemia, unspecified; J44.9 Chronic obstructive pulmonary disease, unspecified; I11.0 Hypertensive heart disease with heart failure; I50.9 Heart failure, unspecified; E11.9 Type 2 diabetes mellitus without complications; Z95.1 Presence of aortocoronary bypass graft
CPT/HCPCS: 36415; 71045; 80053; 80307; 83880; 84484; 85025; 93005; 99284

== ENCOUNTER 2020-01-06 15:40 | Emergency (ER) | payer MEDICARE ==
[~2020-01-06 15:40] MED LIST changes: +DOXY100T PO; +FURO-93 PO; +GUAI1TBM11 PO; +HYDR-3342 PO; -MECL12.52 PO; +MECL12.581 PO; +METH4TAB2 PO; +MULT-449 PO; -MULT1TAB60 PO; +NITR0.4T41 SL
--- NOTE | 2020-01-06 15:54 | NUR ---
THIS IS A 69 YO M BIB EMS W/ CO WEAKNESS, DIZZINESS AND LT HIP PAIN X4 DAYS. PT REPORTS NO NEW SOB/CP. PT RESTING ON GURNEY W/ CALL LIGHT IN REACH AND SIDE RAILS UPX2. CONNECTED TO ALL MONITORING, VSS, NADN. MONITOR SUSPICIOUS FOR ST ELEVATION, EKG OBTAINED AND GIVEN TO . PT AWAITING ED EVAL.
[2020-01-06 16:33] LABS: BASOPHILS # (AUTO) 0.02 x10^3/uL (0-0.1); BASOPHILS % (AUTO) 0 % (0-1); EOSINOPHILS # (AUTO) 0.15 x10^3/uL (0-0.4); EOSINOPHILS % (AUTO) 2 % (1-7); LYMPHOCYTES # (AUTO) 1.43 x10^3/uL (1-3.4); LYMPHOCYTES % (AUTO) 23 % (22-44); MD NO; MEAN CORPUSCULAR HEMOGLOBIN 32.5 pg (27.5-34.5); MEAN CORPUSCULAR HGB CONC 33.8 g/dL (33.2-36.2); MEAN PLATELET VOLUME 9.4 fL (7.4-10.4); MONOCYTES # (AUTO) 0.64 x10^3/uL (0.2-0.8); MONOCYTES % (AUTO) 10 % (2-9); NEUTROPHILS # (AUTO) 4.12 x10^3/uL (1.8-6.8); NEUTROPHILS % (AUTO) 65 % (42-75); PLATELET COUNT 165 x10^3/uL (130-400); RED CELL DISTRIBUTION WIDTH 16.1 % (9.4-14.8)
[2020-01-06 16:35] VITALS: BP 142/74
[2020-01-06 16:40] LABS: INTERNATIONAL NORMALIZED RATIO 1.04 (0.93-1.1); PROTHROMBIN TIME 10.7 Seconds (9.6-11.5)
[2020-01-06 16:42] LABS: ALANINE AMINOTRANSFERASE 17 U/L (12-78); ALBUMIN 3.1 g/dL (3.4-5.0); ANION GAP 5 mmol/L (5-15); CALCIUM 9.1 mg/dL (8.5-10.1); CHLORIDE 111 mmol/L (98-107); CREATININE 1.82 mg/dL (0.7-1.3)
[2020-01-06 16:46] LABS: ALKALINE PHOSPHATASE 84 U/L (45-117); BILIRUBIN,TOTAL 0.7 mg/dL (0.2-1.0); TOTAL PROTEIN 6.3 g/dL (6.4-8.2)
[2020-01-06 16:48] LABS: TROPONIN I 0.281 ng/mL (0.000-0.045)
--- NOTE | 2020-01-06 16:55 | NUR ---
PT RESTING ON [employer] W/ CALL LIGHT IN REACH AND SIDE RAILS UPX2. VSS, NADN. ALL TESTS RESULTED. PT IS UP FOR RECHECK AT THIS TIME.
== END 2020-01-06 17:55 | disposition home or self-care (01) ==
LOC: ED 17:48
DX: R07.89 Other chest pain (principal); R53.1 Weakness; R42 Dizziness and giddiness; I45.10 Unspecified right bundle-branch block; E11.9 Type 2 diabetes mellitus without complications; J44.9 Chronic obstructive pulmonary disease, unspecified; I11.0 Hypertensive heart disease with heart failure; I50.9 Heart failure, unspecified
CPT/HCPCS: 36415; 71045; 80053; 83880; 84484; 85025; 85610; 93005; 99285